=== PATIENT | female | born 1950 | race Caucasian/White ===

== ENCOUNTER 2020-08-22 19:35 | Emergency (ER) | payer MEDICARE, MEDICAID, SELFPAY ==
--- NOTE | 2020-08-22 19:47 | XRR_ITS ---
PROCEDURE INFORMATION: Exam: XR Chest Exam date and time: 08/22/2020 8:17 PM Age: 70 years old Clinical indication: Chest pain; Additional info: Chest pain, high BP, high pulse TECHNIQUE: Imaging protocol: XR of the chest Views: 1 view. COMPARISON: No relevant prior studies available. FINDINGS: Lungs: Unremarkable. No consolidation. Pleural spaces: Unremarkable. No pleural effusion. No pneumothorax. Heart/Mediastinum: Mild cardiomegaly. Bones/joints: Degenerative changes of the spine seen. XR/XR chest 1V portable [id number] IMPRESSION: No evidence active cardiopulmonary disease.
--- NOTE | 2020-08-22 19:48 | ECG_ITS ---
[facility] Test Date: 2020-08-22 Pat Name: Brit Ziegler Department: Room: Gender: Female Survey Technician: TAHMINA ROMEROB: 1950 Requested By: Deepti Gallegos Order Number: [id number] Reading MD: MARCELA CHA Measurements Intervals [place] Rate: 96 P: 15 MS: 145 QRS: -9 QRSD: 90 T: 20 QT: 358 QTc: 453 Interpretive Statements SINUS RHYTHM WITH FREQUENT SUPRAVENTRICULAR PREMATURE COMPLEXES LEFT VENTRICULAR HYPERTROPHY AND ST-T CHANGE [VOLTAGE CRITERIA PLUS ST/T ABNORMALITY] No previous ECG available for comparison Electronically Signed On 08-23-2020 17:43:58 REVIEW TRAINER by MARCELA CHA [email or web address]/store/NU/[id number] f
[2020-08-22 20:25] VITALS: BP 199/84; PULSE 86; RESP 14; TEMP 37; O2SAT 95; BMI 40.4
--- NOTE | 2020-08-22 20:56 | W.ED.ARRPALP ---
HPI - Arrhythmia/Palpitations General: Chief Complaint: Arrhythmia/Palpitations Stated Complaint: High bp, high pulse, shakey Time Seen by Provider: 08/22/20 20:46 Source: patient Mode of arrival: ambulatory Limitations: no limitations History of Present Illness: HPI narrative: Patient is a 70-year-old female with a history of hypertension and she says a remote history of A. fib for which she takes metoprolol. For about 2 weeks she has been feeling unwell with generalized fatigue. She states that today she felt significant palpitation with shortness of breath and right-sided chest pain. The pain was nonradiating. She denies any nausea or diaphoresis. She said her blood pressure has been more elevated recently and she is therefore here to be evaluated. MD complaint: palpitations Onset (ago): hour(s) (6) Duration: constant Severity: moderate Arrhythmia history: atrial fibrillation Associated symptoms: Deny anxiety, cough, diaphoresis, muscle cramps, nausea, paresthesias, pre-syncope, sense of impending doom, short of breath, syncope or vomiting Review of Systems General: Reports: 10 or more systems reviewed and unremarkable except in HPI and below Const: Denies: diaphoresis Eyes: Denies: change in vision or blurry vision ENMT: Denies: throat pain, enlarged tonsils, odynophagia, hoarseness, mouth pain or swelling of lips/tongue Card: Denies: syncope or pre-syncope Resp: Denies: dyspnea, productive cough or non-productive cough GI: Denies: nausea or vomiting : Denies: flank pain, difficulty voiding, dysuria, urinary frequency, urinary urgency or urinary hesitancy Musc: Denies: muscle cramps Skin/Breast: Denies: rash, pruritus or erythema Neuro: Denies: headache(s), numbness in extremities or weakness in extremities Psych: Denies: anxiety Endo: Denies: polyuria, polydipsia or tired all the time Physical Exam Const: COMMON NORMALS: no acute distress, average body habitus, patient oriented x3, no limitations, healthy appearing, alert and well nourished HENMT: COMMON NORMALS: normocephalic, atraumatic and moist oral mucous membranes HEAD & SCALP: normocephalic and atraumatic Neck/C-Spine: COMMON NORMALS: no meningeal signs and no JVD Resp: COMMON NORMALS: normal respiratory effort, No retractions, No use of accessory muscles, clear to auscultation bilaterally and percussion normal AUSCULTATION: clear to auscultation bilaterally PERCUSSION: percussion normal Cardio: COMMON NORMALS: no JVD, regular rate, S1 normal heart sound present, S2 normal heart sound present, No gallops present (Cardio), No clicks present (Cardio), No murmurs present (Cardio), No rub (Cardio) and Peripheral pulses 2+ throughout RATE: regular rate RHYTHM: abnormal rhythm regularly irregular HEART SOUNDS: S1 normal heart sound present and S2 normal heart sound present PERIPHERAL PULSES: Peripheral pulses 2+ throughout GI: COMMON NORMALS: Normal to inspection, nondistended, normoactive bowel sounds present, Soft to palpation, non-tender, No hepatosplenomegaly present, no masses and no bruits PALPATION: Yes Soft to palpation and Yes No hepatosplenomegaly present Extremity: COMMON NORMALS: normal to inspection, full ROM, capillary refill normal, no calf tenderness and no pedal edema Neuro: COMMON NORMALS: patient oriented x3 SENSORIUM/ORIENTATION: Yes alert MENINGEAL SIGNS: Yes no meningeal signs Skin: COMMON NORMALS: no rashes or lesions noted, no wounds, turgor normal, no jaundice, no petechiae and no mottling GENERAL SKIN EXAM: no rashes or lesions noted and turgor normal Course Reevaluation(s): Reevaluation #1: Discussed her lab and imaging findings with her- negative for concerning acute findings. Will discharge her home with no new orders. She voiced understanding and all questions answered. Time: 23:29 Vital Signs: Vital signs: Vital Signs Temperature 98.6 F 08/22/20 20:25 Pulse Rate 66 08/22/20 23:36 Respiratory Rate 14 08/22/20 20:25 Blood Pressure 124/93 08/22/20 23:36 Pulse Oximetry 94 08/22/20 23:36 MDM - Arrhythmia/Palpitations MDM Narrative: Medical decision making narrative: 70 year old patient who presents to the ED with non specific complaints for about one week duration. She is evaluated and there is nothing acute on evaluation. She has some chest pain and palpitations, and cardiac workup unremarkable. She is discharged home with no new orders. Medical Records: Attestation: I reviewed the patient's medical records. Lab Data: Attestation: I reviewed the patient's lab results. Labs: Lab Results 08/22/20 08/22/20 08/22/20 Range/Units 21:00 21:00 21:00 WBC 10.5 H (4.0-10.0) 10^3/ uL RBC 5.21 (4.1-5.3) 10^6/u L Hgb 14.9 (11.5-15.3) g/dL Hct 46.4 (37.0-47.0) % MCV 89.1 (81-99) fL MCH 28.6 (28.0-34.0) pg MCHC 32.1 (30.0-36.0) g/dL RDW 13.6 (12.1-15.1) % Plt Count 244 (130-400) 10^3/c mm MPV 10.8 H (7.4-10.4) fL Neut % (Auto) 74.6 % Lymph % (Auto) 17.2 % [place] % (Auto) 6.5 % Eos % (Auto) 0.8 % Baso % (Auto) 0.6 % Neut # (Auto) 7.81 H (1.8-7.7) 10^3/u L Lymph # (Auto) 1.8 (0.8-4.8) 10^3/u L [place] # (Auto) 0.7 (0.2-0.9) 10^3/u L Eos # (Auto) 0.1 (0.0-0.8) 10^3/u L Baso # (Auto) 0.1 (0.0-0.1) 10^3/u L Nucleated RBC % (a uto) 0 % Nucleated RBCs # 0.0 /100WBC Sodium 141 (136-145) mmol/L Potassium 3.8 (3.5-5.1) mmol/L Chloride 101 (98-107) mmol/L Carbon Dioxide 26 (22-29) mmol/L Anion Gap 17.8 (5-19) BUN 19 (8-23) mg/dL Creatinine 1.1 H (0.5-0.9) mg/dL GFR Calculation Not Reportable Glucose 109 (65-115) mg/dL Calculated Osmolal ity 295 (285-295) mOsm/k g Calcium 10.0 (8.5-10.5) mg/dL Total Bilirubin 0.5 (0.15-1.2) mg/dL AST 21 (0-32) U/L ALT 16 (0-33) U/L Alkaline Phosphata se 93 (35-105) IU/L Troponin T Baselin e 16 H (0-10) ng/L Troponin T 120 Min [place] (0-10) ng/L Delta Troponin T (0-10) ABS# NT-Pro-B Natriuret Pep 213 H (0-125) pg/mL Total Protein 7.8 (6.6-8.7) g/dL Albumin 4.9 (3.5-5.2) g/dL Globulin 2.9 (1.3-4.6) g/dL Lipase 49 (13-60) U/L TSH 2.02 (0.27-4.20) uIU/ mL 08/22/20 Range/Units 22:36 WBC (4.0-10.0) 10^3/ uL RBC (4.1-5.3) 10^6/u L Hgb (11.5-15.3) g/dL Hct (37.0-47.0) % MCV (81-99) fL MCH (28.0-34.0) pg MCHC (30.0-36.0) g/dL RDW (12.1-15.1) % Plt Count (130-400) 10^3/c mm MPV (7.4-10.4) fL Neut % (Auto) % Lymph % (Auto) % [place] % (Auto) % Eos % (Auto) % Baso % (Auto) % Neut # (Auto) (1.8-7.7) 10^3/u L Lymph # (Auto) (0.8-4.8) 10^3/u L [place] # (Auto) (0.2-0.9) 10^3/u L Eos # (Auto) (0.0-0.8) 10^3/u L Baso # (Auto) (0.0-0.1) 10^3/u L Nucleated RBC % (a uto) % Nucleated RBCs # /100WBC Sodium (136-145) mmol/L Potassium (3.5-5.1) mmol/L Chloride (98-107) mmol/L Carbon Dioxide (22-29) mmol/L Anion Gap (5-19) BUN (8-23) mg/dL Creatinine (0.5-0.9) mg/dL GFR Calculation Glucose (65-115) mg/dL Calculated Osmolal ity (285-295) mOsm/k g Calcium (8.5-10.5) mg/dL Total Bilirubin (0.15-1.2) mg/dL AST (0-32) U/L ALT (0-33) U/L Alkaline Phosphata se (35-105) IU/L Troponin T Baselin e (0-10) ng/L Troponin T 120 Min [place] 17.98 H (0-10) ng/L Delta Troponin T 1.98 (0-10) ABS# NT-Pro-B Natriuret Pep (0-125) pg/mL Total Protein (6.6-8.7) g/dL Albumin (3.5-5.2) g/dL Globulin (1.3-4.6) g/dL Lipase (13-60) U/L TSH (0.27-4.20) uIU/ mL Imaging Data^: CXR: Attestation: I personally reviewed and interpreted this imaging study as follows: Radiologist's impression: [address] [address] XRay Report Signed Patient: Brit Ziegler #: [id number] : 9Acct#:[id number] Age/Sex: 70 / FADM Date: 08/22/20 Loc: ERRoom/Bed: Attending Dr: Ordering Provider/Ordering MD: Deepti Gallegos Date of Service: 08/22/20 Procedure(s): XR chest 1V portable [id number] Accession Number(s): [id number] Report Number: [id number] PROCEDURE INFORMATION: Exam: XR Chest Exam date and time: 08/22/2020 8:17 PM Age: 70 years old Clinical indication: Chest pain; Additional info: Chest pain, high BP, high pulse TECHNIQUE: Imaging protocol: XR of the chest Views: 1 view. COMPARISON: No relevant prior studies available. FINDINGS: Lungs: Unremarkable. No consolidation. Pleural spaces: Unremarkable. No pleural effusion. No pneumothorax. Heart/Mediastinum: Mild cardiomegaly. Bones/joints: Degenerative changes of the spine seen. XR/XR chest 1V portable [id number] IMPRESSION: No evidence active cardiopulmonary disease. Dictated By:Carl Schneider Signed By:Carl SchneiderSignjoselo Date/Time:08/23/2049 DD/ 0848 EKG Data^: EKG 1: Attestation: I personally reviewed and interpreted this EKG as follows: EKG interpretation date: 08/22/20 EKG interpretation time: 20:23 Prior EKG tracings: not available for review Interpretation: Sinus rhythm with frequent supraventricular premature complexes. Heart rate [address] changes. Other EKG comments: Chest X-Ray 08/22/20 19:47 IMPRESSION: No evidence active cardiopulmonary disease. EKG 2: Attestation: I personally reviewed and interpreted this EKG as follows: EKG interpretation date: 08/22/20 EKG interpretation time: 21:19 Prior EKG tracings: available for review Interpretation: Sinus rhythm HR [address] changes. No significant changes from earlier. Other EKG comments: Chest X-Ray 08/22/20 19:47 IMPRESSION: No evidence active cardiopulmonary disease. Discharge Plan Discharge Patient Disposition: Home Clinical Impression: Chest pain, Palpitation Condition: Stable Discharge Orders: Discharge ED (Routine); Ordered 08/22/20 Ordered By: Carlita Lowe Discharge Diet: Usual diet Discharge Activity: Increase activity as tolerated Patient Instructions: Chest Pain (ED), Palpitations (ED) Activity Restrictions/Additional Instructions: Return for any new or worsening symptoms. Follow-up with your primary care provider within 3 days. Continue your home medications as prescribed. Coding Level of Care Code ED Psychology Physician for Chg Fwd Exam Comprehensive
[2020-08-22 21:02] VITALS: BP 203/86; PULSE 68; O2SAT 96
[2020-08-22 21:07] LABS: Basophils # 0.1 10^3/uL (0.0-0.1); Basophils % 0.6 %; Eosinophils # 0.1 10^3/uL (0.0-0.8); Eosinophils % 0.8 %; Hematocrit 46.4 % (37.0-47.0); Hemoglobin 14.9 g/dL (11.5-15.3); Lymphocytes # 1.8 10^3/uL (0.8-4.8); Lymphocytes % 17.2 %; Mean Corpuscular HGB Conc 32.1 g/dL (30.0-36.0); Mean Corpuscular Hemoglobin 28.6 pg (28.0-34.0); Mean Corpuscular Volume 89.1 fL (81-99); Mean Platelet Volume 10.8 fL (7.4-10.4); Monocytes # 0.7 10^3/uL (0.2-0.9); Monocytes % 6.5 %; Neutrophils # 7.81 10^3/uL (1.8-7.7); Neutrophils % 74.6 %; Nucleated Red Blood Cells % 0 %; Platelet Count 244 10^3/cmm (130-400); Red Blood Count 5.21 10^6/uL (4.1-5.3); Red Cell Distribution Width 13.6 % (12.1-15.1); White Blood Count 10.5 10^3/uL (4.0-10.0)
[2020-08-22 21:29] LABS: Troponin(5th) Baseline 16 ng/L (0-10)
--- NOTE | 2020-08-22 21:48 | ECG_ITS ---
[facility] Test Date: 2020-08-22 Pat Name: Brit Ziegler Department: Room: Gender: Female Audio Visual Secretary: : 1950 Requested By: Deepti Gallegos Order Number: [id number] Reading MD: MARCELA CHA Measurements Intervals [place] Rate: 72 P: 25 ME: 149 QRS: -12 QRSD: 85 T: 35 QT: 378 QTc: 415 Interpretive Statements SINUS RHYTHM WITH OCCASIONAL SUPRAVENTRICULAR PREMATURE COMPLEXES LEFT VENTRICULAR HYPERTROPHY AND ST-T CHANGE [VOLTAGE CRITERIA PLUS ST/T ABNORMALITY] Compared to ECG 08/22/2020 20:23:23 No significant changes Electronically Signed On 08-23-2020 17:45:10 SYRUPER by MARCELA CHA [id number] f
[2020-08-22 21:57] VITALS: BP 164/88; PULSE 85; O2SAT 95
[2020-08-22 21:58] LABS: Alanine Aminotransferase 16 U/L (0-33); Albumin Level 4.9 g/dL (3.5-5.2); Alkaline Phosphatase 93 IU/L (35-105); Anion Gap 17.8 (5-19); Aspartate Amino Transferase 21 U/L (0-32); Blood Urea Nitrogen 19 mg/dL (8-23); Carbon Dioxide 26 mmol/L (22-29); Chloride 101 mmol/L (98-107); Globulin 2.9 g/dL (1.3-4.6); Glucose 109 mg/dL (65-115); Lipase 49 U/L (13-60); NT Pro B Type Natriuretic Pept 213 pg/mL (0-125); Osmolality Calculated 295 mOsm/kg (285-295); Potassium 3.8 mmol/L (3.5-5.1); Sodium 141 mmol/L (136-145); Thyroid Stimulating Hormone 2.02 uIU/mL (0.27-4.20); Total Bilirubin 0.5 mg/dL (0.15-1.2); Total Protein 7.8 g/dL (6.6-8.7)
[2020-08-22 23:06] LABS: Troponin 5 2HR 17.98 ng/L (0-10); Troponin 5 2HR Delta 1.98 ABS# (0-10)
[2020-08-22 23:22] VITALS: BP 124/93; PULSE 66; O2SAT 96
[2020-08-22 23:36] VITALS: BP 124/93; PULSE 66; O2SAT 94
== END 2020-08-22 23:38 | disposition home or self-care (01) ==
PROVIDERS: Physician Assistant; Emergency Provider Family Medicine
DX: R07.9 Chest pain, unspecified (principal); R00.2 Palpitations
CPT/HCPCS: 71045; 80053; 83690; 83880; 84443; 84484; 85025; 93005; 99283

== ENCOUNTER 2023-05-16 19:44 | Emergency (ER) | payer MEDICARE, MEDICAID, SELFPAY ==
[2023-05-16 19:48] VITALS: BP 181/72; PULSE 65; RESP 16; TEMP 36.4; O2SAT 98
--- NOTE | 2023-05-16 19:58 | XRR_ITS ---
PROCEDURE INFORMATION: Exam: XR Right Humerus Exam date and time: 05/16/2023 8:06 PM Age: 73 years old Clinical indication: Injury or trauma; Fall; Blunt trauma (contusions or hematomas); Arm, upper; Right; Additional info: Fall, arm pain TECHNIQUE: Imaging protocol: Radiologic exam of the right humerus. Views: 2 or more views. COMPARISON: No relevant prior studies available. FINDINGS: Bones/joints: Normal. Soft tissues: Normal. XR/[place] [id number] IMPRESSION: No acute findings.
--- NOTE | 2023-05-16 20:21 | W.ED.EXTPRO ---
HPI - Extremity Problem General: Chief complaint: Extremity Injury, Upper Stated complaint: fall, arm injury Time Seen by Provider: 05/16/23 20:10 Source: patient Mode of arrival: ambulatory Limitations: no limitations History of Present Illness: 73-year-old female states she had a fall she landed on her right shoulder states she had right shoulder pain since then states that is actually not painful at rest but when she moves her arm she has some pain in her shoulder radiates down her humerus denies any elbow pain to me she denies hitting her head denies any neck pain. Associated symptoms: Deny chest pain, fever(s) or rash Review of Systems Const: Denies: fever(s), chills, body aches or change in appetite ENMT: Denies: throat pain or dental pain Card: Denies: chest pain Resp: Denies: dyspnea GI: Denies: abdominal pain, nausea, vomiting or diarrhea Musc: Reports: extremity pain; Denies: neck pain or back pain Skin/Breast: Denies: rash Neuro: Denies: headache(s) Physical Exam Const: COMMON NORMALS: no acute distress, patient oriented x3 and healthy appearing HENMT: COMMON NORMALS: normocephalic and atraumatic HEAD & SCALP: normocephalic and atraumatic Neck/C-Spine: COMMON NORMALS: full ROM and supple Chest: COMMONS NORMALS: normal inspection of the chest and normal palpation of entire chest wall Resp: COMMON NORMALS: normal respiratory effort, No retractions, No use of accessory muscles and clear to auscultation bilaterally AUSCULTATION: clear to auscultation bilaterally Cardio: COMMON NORMALS: regular rate, regular rhythm and No murmurs present (Cardio) RATE: regular rate RHYTHM: regular rhythm GI: COMMON NORMALS: Normal to inspection, nondistended, normoactive bowel sounds present, Soft to palpation, non-tender and no masses PALPATION: Yes Soft to palpation Extremity: COMMON NORMALS: full ROM NARRATIVE EXTREMITY EXAM: tenderness over right shoulder no obvious deformity Neuro: COMMON NORMALS: patient oriented x3, moves all extremities and no focal motor deficits Psych: COMMON NORMALS: mental status grossly normal, Normal thought process present and cooperative THOUGHT PROCESS: Normal thought process present Skin: COMMON NORMALS: no rashes or lesions noted and no wounds GENERAL SKIN EXAM: no rashes or lesions noted Course Vital Signs: Vital signs: Vital Signs Temperature 97.5 F L 05/16/23 19:48 Pulse Rate 65 05/16/23 19:48 Respiratory Rate 16 05/16/23 19:48 Blood Pressure 181/72 05/16/23 19:48 Pulse Oximetry 98 05/16/23 19:48 Oxygen Delivery Me thod Room Air 05/16/23 19:48 MDM - Extremity (Nontraumatic) Medical Decision Making Patient presents here with a shoulder contusion from a fall x-rays here show no fractures she is stable for discharge she is to follow-up PCP and return if worsening Medical Records I reviewed the patient's medical records. Lab Data Radiology Impressions Humerus X-Ray 05/16/23 19:58 IMPRESSION: No acute findings. Shoulder X-Ray 05/16/23 20:30 IMPRESSION: No acute findings. All radiology interpretation(s) finalized by discharge Discharge Plan Discharge Patient Disposition: Home Clinical Impression: Fall Qualifiers: Encounter type: initial encounter Qualified Code(s): W19.XXXA - Unspecified fall, initial encounter Injury of right shoulder Qualifiers: Encounter type: initial encounter Qualified Code(s): S49.91XA - Unspecified injury of right shoulder and upper arm, initial encounter Condition: Stable Prescriptions: New Naprosyn 500 mg tablet 500 mg PO BID PRN (Reason: pain) Qty: 20 0RF Discharge Orders: Discharge ED (Routine); Ordered 05/16/23 Ordered By: Marce Dutta Discharge Diet: Advance as tolerated Discharge Activity: Resume usual activity Patient Instructions: Shoulder Sprain (ED) Coding Level of Care Code ED Alcohol And Drug Counselor for Eric Piedra
--- NOTE | 2023-05-16 20:30 | XRR_ITS ---
PROCEDURE INFORMATION: Exam: XR Right Shoulder Exam date and time: 05/16/2023 8:33 PM Age: 73 years old Clinical indication: Injury or trauma; Fall; Blunt trauma (contusions or hematomas); Shoulder; Right TECHNIQUE: Imaging protocol: Radiologic exam of the right shoulder. Views: 2 or more views. COMPARISON: CR ([facility], ) 05/16/2023 8:06 PM FINDINGS: Bones/joints: Normal. Soft tissues: Normal. XR/XR shoulder RT min 2V* [id number] IMPRESSION: No acute findings.
[2023-05-16 21:24] VITALS: BP 183/76; PULSE 72; RESP 16; TEMP 36.6; O2SAT 98
== END 2023-05-16 21:26 | disposition home or self-care (01) ==
PROVIDERS: Emergency Provider Emergency Medicine
DX: S40.011A Contusion of right shoulder, initial encounter (principal); W19.XXXA Unspecified fall, initial encounter
CPT/HCPCS: 73030; 73060; 99283

== ENCOUNTER 2024-06-19 13:30 | Emergency (ER) | payer MEDICARE, SELFPAY ==
[2024-06-19 14:32] VITALS: BP 186/90; PULSE 66; TEMP 37.5; O2SAT 97; BMI 33.4
--- NOTE | 2024-06-19 15:27 | XRR_ITS ---
PROCEDURE INFORMATION: Exam: XR Chest Exam date and time: 06/19/2024 3:29 PM Age: 74 years old Clinical indication: Shortness of breath; Additional info: SOB TECHNIQUE: Imaging protocol: Radiologic exam of the chest. Views: 1 view. COMPARISON: CR XR chest 1V portable [id number] 08/22/2020 8:06 PM FINDINGS: Lungs: Unremarkable. No consolidation. Pleural spaces: Unremarkable. No pleural effusion. No pneumothorax. Heart/Mediastinum: Stable cardiomegaly. Bones/joints: Mild thoracic curvature and degenerative changes. No fracture. XR/XR chest 1V portable [id number] IMPRESSION: No acute pulmonary findings.
--- NOTE | 2024-06-19 15:29 | W.ED.URI ---
HPI - URI/Sore Throat General: Chief Complaint: Upper Respiratory Infection Stated Complaint: flu Time Seen by Provider: 06/19/24 15:21 Source: patient Mode of arrival: EMS Limitations: no limitations History of Present Illness: 74-year-old female who states that she has had cough congestion for the last week. She states has been having low-grade fevers along with some shortness of breath as well she has had a sore throat she denies any vomiting or diarrhea she denies any worsening improving factors. Associated symptoms: Reports chills and fever(s); Deny abdominal pain, chest pain, diarrhea, headache(s), nausea or vomiting Related Data Previous Rx's Medication Instructions Recorded naproxen 500 mg tablet (Naprosyn) 500 mg PO BID PRN pain #20 tabs 05/16/23 Allergies Allergy/AdvReac Type Severity Reaction Status Date / Time No Known Allergies Allergy Verified 06/19/24 14:36 Review of Systems Const: Reports: fever(s), chills and body aches; Denies: change in appetite ENMT: Denies: throat pain or dental pain Card: Denies: chest pain Resp: Reports: dyspnea and non-productive cough GI: Denies: abdominal pain, nausea, vomiting or diarrhea Musc: Denies: neck pain or back pain Skin/Breast: Denies: rash Neuro: Denies: headache(s) Physical Exam Const: COMMON NORMALS: no acute distress, patient oriented x3 and healthy appearing HENMT: COMMON NORMALS: normocephalic and atraumatic HEAD & SCALP: normocephalic and atraumatic Eye: COMMON NORMALS: conjunctivae normal CONJUNCTIVA: Yes conjunctivae normal Neck/C-Spine: COMMON NORMALS: full ROM and supple Chest: COMMONS NORMALS: normal inspection of the chest and normal palpation of entire chest wall Resp: COMMON NORMALS: normal respiratory effort, No retractions, No use of accessory muscles and clear to auscultation bilaterally AUSCULTATION: clear to auscultation bilaterally Cardio: COMMON NORMALS: regular rate, regular rhythm and No murmurs present (Cardio) RATE: regular rate RHYTHM: regular rhythm Extremity: COMMON NORMALS: normal to inspection and full ROM Neuro: COMMON NORMALS: patient oriented x3, moves all extremities and no focal motor deficits Psych: COMMON NORMALS: mental status grossly normal, Normal thought process present and cooperative THOUGHT PROCESS: Normal thought process present Skin: COMMON NORMALS: no rashes or lesions noted and no wounds GENERAL SKIN EXAM: no rashes or lesions noted Course Vital Signs: Vital signs: Vital Signs Temperature 99.5 F 06/19/24 14:32 Pulse Rate 66 06/19/24 14:32 Blood Pressure 186/90 06/19/24 14:32 Pulse Oximetry 97 06/19/24 14:32 Oxygen Delivery Me thod Room Air 06/19/24 14:32 MDM - URI/Sore Throat Medical Decision Making Patient presents with cough congestion she did test positive for RSV she is in no distress here she stable for discharge did give her Decadron we will prescribe her an inhaler for home Medical Records I reviewed the patient's medical records. Lab Data I reviewed the patient's lab results. Laboratory Results Coronavirus (PCR) Negative (Negative) 06/19/24 14:40 Influenza A (PCR) Negative (Negative) 06/19/24 14:40 Influenza Type B (PCR) Negative (Negative) 06/19/24 14:40 RSV (PCR) Positive (Negative) A 06/19/24 14:40 All radiology interpretation(s) finalized by discharge EKG Data EKG 1: I personally reviewed and interpreted this EKG as follows: EKG interpretation date: 06/19/24 EKG interpretation time: 15:17 Interpretation: nsr hr [address] elevation qrs 97 qtc 372 Discharge Plan Discharge Patient Disposition: Home Clinical Impression: RSV bronchiolitis Condition: Stable Prescriptions: No Action Naprosyn 500 mg tablet 500 mg PO BID PRN (Reason: pain) Qty: 20 0RF Discharge Orders: Discharge ED (Routine); Ordered 06/19/24 Ordered By: Marce Dutta Discharge Diet: Advance as tolerated Discharge Activity: Resume usual activity Patient Instructions: Respiratory Syncytial Virus (RSV) Coding Level of Care Code ED Merchandise Stocker for Eric Piedra
[2024-06-19] MEDS: acetaminophen 325 mg Tablet 650 MG PO (15:34)
[2024-06-19] MEDS: dexamethasone 10 mg/mL INJ IM (15:34)
[2024-06-19 15:35] LABS: Covid PCR NEGATIVE (Negative); Influenza A NEGATIVE (Negative); Influenza B NEGATIVE (Negative)
[2024-06-19 15:41] LABS: Respiratory Syncytial Virus Ce POSITIVE (Negative)
[2024-06-19] MEDS: albuterol 8 gm MDI 2 PUFF INHALATION (16:20)
[2024-06-19 16:22] VITALS: PULSE 90; RESP 20; O2SAT 96
[2024-06-19 16:37] VITALS: BP 194/88; PULSE 73; RESP 16; O2SAT 98
== END 2024-06-19 16:39 | disposition home or self-care (01) ==
PROVIDERS: Emergency Provider Emergency Medicine
DX: J21.0 Acute bronchiolitis due to respiratory syncytial virus (principal); Z11.52 Encounter for screening for COVID-19
CPT/HCPCS: 71045; 87637; 94640; 96372; 99284; J1100; J3535